=== PATIENT | female | born 1935 | race Two or more races ===

== ENCOUNTER 2017-01-22 08:18 | Observation (INO) | payer OTHER ==
--- NOTE | 2017-01-22 08:40 | PDOC ---
History of Present Illness - General Chief Complaint: Palpitations Stated Complaint: COUGH Time Seen by Provider: 01/22/17 08:39 History Source: Patient Exam Limitations: No Limitations - History of Present Illness Initial Comments: 01/22/17 08:39 CHIEF COMPLAINT: Cough HISTORY OF PRESENT ILLNESS: This is an 81 year old female from [place] with a history of HTN, HLD, and vertigo who presents ambulatory to the ED with her son complaining of cough and palpitations. She reports that she has had the cough since October. She was seen at an urgent care then and prescribed azithromycin, albuterol nebulizers, and promethazine syrup without relief. The cough has continued and is now productive of brown sputum. She has traveled to [place] most recently in December, and prior to that 3 years ago. She denies fevers, chills, nightsweats, weight loss, and known sick contacts. She denies calf pain/swelling , misha hemoptysis, and chest pain. She does not have any family or personal history of hypercoaguability. The patient was prompted to present to the ED today because of palpitations. V/s on arrival are notable for SpO2 93% on RA, BP 176/85, HR 128 on EKG. Patient does not follow with a PCP. REVIEW OF SYSTEMS: GENERAL/CONSTITUTIONAL: No fevers or chills. No weakness. No weight change. HEAD, EYES, EARS, NOSE AND THROAT: No change in vision. No ear pain or discharge. No sore throat. CARDIOVASCULAR: Palpitations this morning. No chest pain. RESPIRATORY: Dry cough since October, now productive of brown sputum. No shortness of breath. GASTROINTESTINAL: No nausea, vomiting, diarrhea or constipation. GENITOURINARY: No dysuria, frequency, or change in urination. MUSCULOSKELETAL: No neck or back pain. No myalgias or arthralgias. SKIN: No rash or easy bruising. NEUROLOGIC: No headache, vertigo, loss of consciousness, or loss of sensation. HEMATOLOGIC/LYMPHATIC: No anemia, easy bleeding, or history of blood clots. ALLERGIC/IMMUNOLOGIC: No hives or skin allergy. No latex allergy. PHYSICAL EXAM: GENERAL: The patient is awake, alert, and fully oriented, in no acute distress. ENT: Pupils equal, round and reactive to light, extraocular movements intact, sclera anicteric, conjunctiva clear. Neck supple. LUNGS: SUMIT ronchi. Scattered wheezes. Mild tachypnea. Able to speak in full sentences. CV: Tachycardic. RRR, S1/S2, no MRG. Cap refill < 2 sec. ABDOMEN: Soft, non-distended, non-tender. EXTREMITIES: Normal range of motion, no edema. No calf tenderness, negative Homans' sign. NEUROLOGICAL: Normal speech. CN II-XII grossly intact. PSYCH: Normal mood, normal affect. SKIN: Warm, dry, normal turgor, no rashes or lesions noted. Past History - Past Medical History Allergies/Adverse Reactions: Allergies Allergy/AdvReac Type Severity Reaction Status Date / Time No Known Allergies Allergy Verified 01/22/17 08:19 Home Medications: Ambulatory Orders Amlodipine Besylate [Norvasc -] 5 mg PO DAILY 03/25/15 Enalapril Maleate [Vasotec] 20 mg PO DAILY 03/25/15 Hydrochlorothiazide [Hctz -] 12.5 mg PO DAILY 03/25/15 Meclizine HCl [Antivert -] 25 mg PO TID #21 tablet 03/25/15 HTN: Yes Hypercholesterolemia: Yes - Surgical History Cholecystectomy: Yes - Psycho/Social/Smoking Cessation Hx Anxiety: No Suicidal Ideation: No Smoking History: Never smoked Have you smoked in the past 12 months: No If you are a former smoker, when did you quit?: 1982 Information on smoking cessation initiated: No Hx Alcohol Use: No Drug/Substance Use Hx: No *Physical Exam - Vital Signs Last Vital Signs Temp Pulse Resp BP Pulse Ox 98.3 F 101 H 18 176/85 93 L 01/22/17 08:19 01/22/17 08:19 01/22/17 08:19 01/22/17 08:19 01/22/17 08:19 ED Treatment Course - LABORATORY CBC & Chemistry Diagram: 01/22/17 09:00 01/22/17 09:00 Medical Decision Making - Medical Decision Making 01/22/17 09:01 A/P: 81 year old female with 3-4 months of cough, presenting today with ? hemoptysis, palpitations, and tachycardia. Significant travel history. SUMIT ronchi/wheezes on exam. Differential includes URI/pneumonia, TB, less likely PE , CHF. 1. EKG and cardiac cath rn 2. CXR; anticipate chest CT 3. Sepsis labs and fernandes-culture 4. IVF 5. Re-assess 01/22/17 10:22 D-dimer within normal limits at 222. CXR: no infiltrate, will obtain CT 01/22/17 10:42 CT reviewed: left hilar calcifications, no acute process. Labs notable only for BUN/Cr 1.5 (22/1.4 on prior admission in 2014) 01/22/17 10:58 Repeat HR is 85 after fluids. Repeat SpO2 is 94%. Will treat with azithromycin for bronchitis. Given abnormal v/s on presentation, will place in observation. *DC/Admit/Observation/Transfer Diagnosis at time of Disposition: Palpitations, Hemoptysis, Bronchitis, Hypoxia - Discharge Dispostion Admit: Yes
[2017-01-22 09:10] LABS: VENOUS PH 7.4 (7.32-7.42)
[2017-01-22 09:11] LABS: VENOUS BLOOD GAS HCO3 28.3 meq/L (19-25)
[2017-01-22 09:15] LABS: BASOPHIL 0.8 % (0-2.0); EOSINOPHIL 8.7 % (0-4.5); MCH 30.2 pg (25.7-33.7); MCHC 34.1 g/dl (32.0-36.0); MEAN CELL VOLUME 88.5 fl (80-96); MEAN PLT VOLUME 8.5 fl (7.5-11.1); NEUTROPHILS 53.2 % (42.8-82.8); PLATELET COUNT 263 K/MM3 (134-434); RDW 13.8 % (11.6-15.6); WHITE BLOOD COUNT 6.6 K/mm3 (4.0-10.0)
[2017-01-22 09:17] LABS: URINE APPEARANCE CLEAR; URINE BILIRUBIN NEGATIVE (NEGATIVE); URINE COLOR YELLOW; URINE GLUCOSE (UA) NEGATIVE (NEGATIVE); URINE KETONE NEGATIVE (NEGATIVE); URINE LEUK ESTERASE NEGATIVE (NEGATIVE); URINE NITRITE NEGATIVE (NEGATIVE); URINE UROBILINOGEN NEGATIVE E.U./dl (0.2-1.0)
[2017-01-22 09:20] LABS: URINE BLOOD 3+ (NEGATIVE); URINE PROTEIN 1+ (NEGATIVE)
[2017-01-22 09:21] LABS: URINE HYALINE CAST 3 /lpf; URINE MUCUS RARE; URINE RBC 22 /hpf (0-3); URINE WBC 1 /hpf (3-5)
[2017-01-22 09:29] LABS: INR 0.96 (0.82-1.09); PROTHROMBIN TIME (PATIENT) 10.5 SEC (9.98-11.88)
[2017-01-22 09:32] LABS: ACTIVATED PTT 32.2 SECONDS (26.9-34.4)
[2017-01-22 09:58] LABS: ALBUMIN 3.8 g/dl (3.4-5.0); ANION GAP 9 (8-16); CALCIUM 8.8 mg/dL (8.5-10.1); CO2 28 mmol/L (21-32); COCKROFT - GAULT 29.4865; CREATININE 1.5 mg/dL (0.55-1.02); GLUCOSE,RANDOM 109 mg/dL (74-106); SGOT/AST 23 U/L (15-37); SGPT/ALT 31 U/L (12-78)
[2017-01-22 10:02] LABS: ALK PHOS 91 U/L (45-117); BILIRUBIN,TOTAL 0.4 mg/dL (0.2-1.0); TOT PROT 7.8 g/dl (6.4-8.2); TROPONIN I < 0.02 ng/ml (0.00-0.05)
[2017-01-22] MEDS ORDERED: SODIUM CHLORIDE 1,000 ML IV STA (10:05)
[2017-01-22] MEDS ORDERED: ALBUTEROL SO4 0.083% IH SOL 2.5 MG/3 ML VIAL.NEB. NEB ONE (10:58)
[2017-01-22 11:31] LABS: THYROID STIMULATING HORMONE 2.36 uIU/ml (0.358-3.74)
[2017-01-22] MEDS ORDERED: AZITHROMYCIN IVPB 500 MG in DEXTROSE 5%-WATER - 250 ML IVPB ONE (11:46)
[2017-01-22] MEDS ORDERED: AZITHROMYCIN IVPB 250 ML IVPB ONE (11:53)
--- NOTE | 2017-01-22 15:47 | PN ---
Progress Note (short form) - Note Progress Note: PULMONARY CONSULTATION DICTATED 01/22/17 IMP COUGH/BRONCHOSPASM HYPER-REACTIVE AIRWAY SYNDROME R/O GERD HTN HLD PLAN STEROIDS INHALED BRONCHODILATORS ANTIBIOTICS PFTS OUTPATIENT PEAK FLOW CONSIDER D/C JULIANN INHIBITOR DR [place] Problem List - Problems (1) Bronchitis Code(s): J40 - BRONCHITIS, NOT SPECIFIED ACUTE OR CHRONIC (2) Lightheadedness Code(s): R42 - DIZZINESS AND GIDDINESS (3) Cough Code(s): R05 - COUGH (4) Bronchospasm Code(s): J98.01 - ACUTE BRONCHOSPASM (5) Airway hyperreactivity Code(s): J45.909 - UNSPECIFIED ASTHMA, UNCOMPLICATED
--- NOTE | 2017-01-22 15:48 | PN ---
Teaching Attending Note Name of Resident: Dexter Goel ATTENDING PHYSICIAN STATEMENT I saw and evaluated the patient. I reviewed the resident's note and discussed the case with the resident. I agree with the resident's findings and plan as documented. SUBJECTIVE:81yo F c/o productive cough of white/clear sputum for 1 month. states she can not relate it to time of day. not assoc with certain type of activity. no similar symptoms in the past. no sick contacts, no recent travel. denies CP, SOB, dyspnea on exertion, fever, chills, no weight loss. has a dog at home. no recent changes in medication. OBJECTIVE: Last Vital Signs Temp Pulse Resp BP Pulse Ox 98.4 F 89 18 150/74 94 L 01/22/17 15:00 01/22/17 15:00 01/22/17 15:00 01/22/17 15:00 01/22/17 14:06 General NAD CV s1 S2 RRR no murmur/rub/gallop Lungs mild expiratory wheezes R side. no crackles. good lung expansion Abdomen soft NT/ND Extremities no pedal edema ASSESSMENT AND PLAN: 81yo F with PMH HTN presented to the ER and was admitted for further evaluation of their emergent condition 1.Chronic Cough- Bronchitis vs ACEI vs postnasal drip. medicine observation. CT chest negative. ddimer negative. low suspicion for PE. started on azithromycin will continue. flonase 2 week trial. d/c acei and monitor for response. nebs prn no sob. pulmonary on board 2. HTN- above goal. if remains elevated will increase norvasc as now stopping acei. titrate to optimize control 3. DVT ppx- EAM
--- NOTE | 2017-01-22 16:32 | CONS ---
DATE OF CONSULTATION: 01/22/2017 REFERRING PHYSICIAN: Lucia Manjarrez M.D. HISTORY OF PRESENT ILLNESS: The patient is an 81-year-old white female with past medical history of hypertension, hyperlipidemia, vertigo, history of smoking many years ago, admitted to [facility] with complaint of cough and palpitations. Patient states she had a cough since October. At the time, she went to an urgent care center, was prescribed Zithromax, albuterol, and promethazine without any significant improvement. Her cough has been persistent, for the past few days productive of brownish sputum. Denied any hemoptysis. Denied any chest pain or palpitations, denied any nausea, vomiting, or diaphoreses. She recently traveled to [place] in December, and prior to that 3 years ago. There is no history of asthma or COPD or bronchitis. There is no history of TB. She denies any fevers, weight loss, or night sweats. PAST MEDICAL HISTORY: Again includes hyperlipidemia, hypertension, vertigo. REVIEW OF SYSTEMS: Positive shortness of breath. Positive cough. Positive bronchospasm. No chest pain. No palpitations. MEDICATION: Prior to admission include Norvasc, Vasotec, hydrochlorothiazide, Antivert. CURRENT MEDICATIONS: Include no medications. SOCIAL HISTORY: History of tobacco use, quit years ago. Born in [place] and moved to the [facility] in [facility]. No occupational exposures . PHYSICAL EXAMINATION: General: The patient is an elderly delfino white female, awake, alert, in no acute distress. Vital signs: She is currently afebrile. Blood pressure 150/74, respiratory rate 18, temperature is 98.4. HEENT: Head is normocephalic, atraumatic. Neck: Supple. Heart: Regular. S1, S2. Chest: A few scattered bilateral wheezes. Abdomen: Soft. Bowel sounds positive. Extremities: No cyanosis, edema. LABORATORY: WBC is 6.6, hemoglobin 13.9, hematocrit 40.8 with a platelet count of 263,000. Venous blood gases: pH 7.40, pCO2 of 45, pO2 of 33, bicarbonate of 28. Chemistries: BUN 27, creatinine 1.5. 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 IMPRESSION: 1. Cough, bronchospasm possible secondary to hyperactive airway syndrome. 2. Cough also may be secondary to JULIANN inhibitors. 3. Hypertension. 4. Hyperlipidemia. PLAN: Inhaled bronchodilators. IV steroids 24 hours. PFTs as outpatient. Consider changing to different antibiotic. Consider changing antihypertensive. Monitor peak flow. RAMESH C[place] M.D. AUDREY/[id number]
[2017-01-22] MEDS ORDERED: ALBUTEROL SO4 0.083% IH SOL 2.5 MG/3 ML VIAL.NEB. NEB PRN (16:52)
[2017-01-22 16:53] VITALS: BMI 23.7
[2017-01-22] MEDS ORDERED: MECLIZINE HCL 25 MG TABLET (FP) PO PRN (17:21)
--- NOTE | 2017-01-22 17:24 | HP ---
CHIEF COMPLAINT:Cough PCP: HISTORY OF PRESENT ILLNESS: 81 year old female with pmg of hpld and HTN on enalapril present to the ED with complaints of non productive cough for more than a month that increased in this morning. The patient denies fever, chills, shortness of breath, rinnorrhea, chest pain, dyspnea on exertion, arthralgia, myalgia, hemptysis, fatigue, weight loss, anorexia, nightsweats, dizziness, general weakness, n/v, abdominal pain. No sick contact. Patient has an episode of palpitation yesterday which she associated to taking robutussin. ER course was notable for: (1) albuterol, Normal saline, azithromycin PAST MEDICAL HISTORY: HTN, Hyperlipidemia, vertigo PAST SURGICAL HISTORY: Cholecystectomy, hysterectomy Social History: Smoking:none Alcohol:none Drugs: none Family History: none Allergies No Known Allergies Allergy (Verified 01/22/17 08:19) HOME MEDICATIONS: Home Medications Medication Instructions Recorded Amlodipine Besylate [Norvasc -] 5 mg PO DAILY 03/25/15 Enalapril Maleate [Vasotec] 20 mg PO DAILY 03/25/15 Hydrochlorothiazide [Hctz -] 12.5 mg PO DAILY 03/25/15 Meclizine HCl [Antivert -] 25 mg PO TID #21 tablet 03/25/15 ASpirin 81mg PO daily Centrum Multivitamin 1 tablet orally daily REVIEW OF SYSTEMS CONSTITUTIONAL: Absent: fever, chills, diaphoresis, generalized weakness, malaise, loss of appetite, weight change HEENT: Absent: rhinorrhea, nasal congestion, throat pain, throat swelling, difficulty swallowing, mouth swelling, ear pain, eye pain, visual changes CARDIOVASCULAR: palpitations, Absent: chest pain, syncope, irregular heart rate, lightheadedness, peripheral edema RESPIRATORY: cough Absent:, shortness of breath, dyspnea with exertion, orthopnea, wheezing, stridor, hemoptysis GASTROINTESTINAL: Absent: abdominal pain, abdominal distension, nausea, vomiting, diarrhea, constipation, melena, hematochezia GENITOURINARY: Absent: dysuria, frequency, urgency, hesitancy, hematuria, flank pain, genital pain MUSCULOSKELETAL: Absent: myalgia, arthralgia, joint swelling, back pain, neck pain SKIN: Absent: rash, itching, pallor HEMATOLOGIC/IMMUNOLOGIC: Absent: easy bleeding, easy bruising, lymphadenopathy, frequent infections ENDOCRINE: Absent: unexplained weight gain, unexplained weight loss, heat intolerance, cold intolerance NEUROLOGIC: Absent: headache, focal weakness or paresthesias, dizziness, unsteady gait, seizure, mental status changes, bladder or bowel incontinence PSYCHIATRIC: Absent: anxiety, depression, suicidal or homicidal ideation, hallucinations. PHYSICAL EXAMINATION Vital Signs - 24 hr 01/22/17 01/22/17 14:06 15:00 Temperature 98 F 98.4 F Pulse Rate 89 Pulse Rate [ 89 Left Radial] Respiratory 20 18 Rate Blood Pressure 150/74 Blood Pressure 140/80 [Left Arm] O2 Sat by Pulse 94 L Oximetry (%) GENERAL: Awake, alert, and fully oriented, in no acute distress. HEAD: Normal with no signs of trauma. EYES: Pupils equal, round and reactive to light, extraocular movements intact, sclera anicteric, conjunctiva clear. No lid lag. EARS, NOSE, THROAT: Ears normal, nares patent, oropharynx clear without exudates. Moist mucous membranes. NECK: Normal range of motion, supple without lymphadenopathy, JVD, or masses. LUNGS: Breath sounds equal, clear to auscultation bilaterally. No wheezes, and no crackles. No accessory muscle use. HEART: Regular rate and rhythm, normal S1 and S2 without murmur, rub or gallop. ABDOMEN: Soft, nontender, not distended, normoactive bowel sounds, no guarding, no rebound, no masses. No hepatomegaly or splenomegaly. MUSCULOSKELETAL: Normal range of motion at all joints. No bony deformities or tenderness. No CVA tenderness. UPPER EXTREMITIES: 2+ pulses, warm, well-perfused. No cyanosis. No clubbing. No peripheral edema. LOWER EXTREMITIES: 2+ pulses, warm, well-perfused. No calf tenderness. No peripheral edema. NEUROLOGICAL: Cranial nerves II-XII intact. Normal speech. Normal gait. PSYCHIATRIC: Cooperative. Good eye contact. Appropriate mood and affect. SKIN: Warm, dry, normal turgor, no rashes or lesions noted, normal capillary refill. ASSESSMENT/PLAN: 81 year old female with PMh of HPLD, HTN on enalapril presents to the ED with complaint of non productive cough for at least one month. Subacute/chronic cough r/o JULIANN inhibitor effect, Upper airway cough syndrome/ Postnasal, Bronchitis, asthma, GERD Solumedrol IV Synbicort inh Albuterol Inh Azithomycin 250mg PO daily x 4 days Flonase nasal BID DC Enalapril Pulmonary on case Will follow outpatient for PFTs Consider Codeine sulfate 15-30mg PO q6h prn for cough HTN Norvasc 5mg PO ASA 81mg Po daily Stop Enalpril h/o Vertigo Antivert PRN FEN Fluid: none Electrolytes: no abnormalities Nutrition: Low sodium diet DVT prophylaxis: SCD Disposition: keep in floor overnight, DC in am Visit type - Emergency Visit Emergency Visit: Yes ED Registration Date: 01/22/17 Care time: The patient presented to the Emergency Department on the above date and was hospitalized for further evaluation of their emergent condition. - New Patient This patient is new to me today: Yes Date on this admission: 01/23/17 - Critical Care Critical Care patient: No
[2017-01-22] MEDS: methylPREDNISolone NA SUCC 40 MG/1 ML VIAL IVPB SCH ×2 (18:41→21:26)
[2017-01-22] MEDS: amLODIPine BESYLATE 5 MG TABLET (FP) PO SCH (18:41)
[2017-01-22] MEDS ORDERED: HEPARIN NA (PORCINE) 5,000 UNITS/ML 1ML VIAL SQ SCH (22:00)
[2017-01-22] MEDS: FLUTICASONE PROP 0.05% 16 GM NASAL SPRAY NS SCH (22:57)
[2017-01-22] MEDS: BUDESONIDE/FORMETEROL FUMARATE 160/4.5 mcg INHALER IH SCH (22:58)
[2017-01-23] MEDS: methylPREDNISolone NA SUCC 40 MG/1 ML VIAL IVPB SCH ×4 (03:44→17:56)
[2017-01-23] MEDS ORDERED: PT OWN MED DRAWER 7, Y5N ONE (09:20)
[2017-01-23] MEDS: BUDESONIDE/FORMETEROL FUMARATE 160/4.5 mcg INHALER IH SCH ×2 (09:36→21:56)
[2017-01-23] MEDS: ASPIRIN COATED 81 MG TABLET.EC PO SCH (09:37)
[2017-01-23] MEDS: HYDROCHLOROTHIAZIDE 12.5 MG CAPSULE (FP) PO SCH (09:37)
[2017-01-23] MEDS: amLODIPine BESYLATE 5 MG TABLET (FP) PO SCH (09:37)
[2017-01-23] MEDS: FLUTICASONE PROP 0.05% 16 GM NASAL SPRAY NS SCH ×2 (09:38→21:56)
[2017-01-23] MEDS: AZITHROMYCIN 250 MG TABLET (FP) PO SCH (09:39)
[2017-01-23 10:30] LABS: CALCIUM 9.2 mg/dL (8.5-10.1); COCKROFT - GAULT 30.073; CREATININE 1.5 mg/dL (0.55-1.02)
--- NOTE | 2017-01-23 11:48 | PN ---
Progress Note, Physician History of Present Illness: PULMONARY ALERT,FEELING BETTER,LESS COUGH,-SOB. - Current Medication List Current Medications: Active Medications Albuterol Sulfate (Ventolin 0.083% Nebulizer Soln -) 1 amp NEB Q4H PRN PRN Reason: SHORT OF BREATH/WHEEZING Amlodipine Besylate (Norvasc -) 5 mg PO DAILY [facility] Last Admin: 01/23/17 09:37 Dose: 5 mg Aspirin (Ecotrin -) 81 mg PO DAILY [facility] Last Admin: 01/23/17 09:37 Dose: 81 mg Azithromycin (Zithromax -) 250 mg PO DAILY [facility] Last Admin: 01/23/17 09:39 Dose: 250 mg Budesonide/Formoterol Fumarate (Symbicort 160/4.5mcg -) 2 puff IH BID [facility] Last Admin: 01/23/17 09:36 Dose: 2 inh Fluticasone Propionate (Flonase -) 1 spray NS BID [facility] Last Admin: 01/23/17 09:38 Dose: 1 spray Hydrochlorothiazide (Hctz -) 12.5 mg PO DAILY [facility] Last Admin: 01/23/17 09:37 Dose: 12.5 mg Meclizine HCl (Antivert -) 25 mg PO TID PRN PRN Reason: VERTIGO Methylprednisolone Sodium Succinate (Solu-Medrol -) 40 mg IVPB Q6H-IV [facility] Last Admin: 01/23/17 09:38 Dose: 40 mg - Objective Vital Signs: Vital Signs Temperature 98.3 F 01/23/17 07:00 Pulse Rate 94 H 01/23/17 07:00 Respiratory Rate 18 01/23/17 07:00 Blood Pressure 132/77 01/23/17 07:00 O2 Sat by Pulse Oximetry (%) 94 L 01/22/17 14:06 Constitutional: Yes: Well Nourished, Calm Eyes: Yes: WNL HENT: Yes: WNL Neck: Yes: WNL Cardiovascular: Yes: Regular Rate and Rhythm, S1, S2 Respiratory: Yes: CTA Bilaterally Gastrointestinal: Yes: Normal Bowel Sounds, Soft Extremities: Yes: WNL Edema: No Labs: CBC, BMP 01/23/17 09:50 INR, PTT INR 0.96 (0.82-1.09) 01/22/17 09:00 Problem List - Problems (1) Bronchitis Code(s): J40 - BRONCHITIS, NOT SPECIFIED ACUTE OR CHRONIC (2) Lightheadedness Code(s): R42 - DIZZINESS AND GIDDINESS (3) Cough Code(s): R05 - COUGH (4) Bronchospasm Code(s): J98.01 - ACUTE BRONCHOSPASM (5) Airway hyperreactivity Code(s): J45.909 - UNSPECIFIED ASTHMA, UNCOMPLICATED Assessment/Plan IMP COUGH/BRONCHOSPASM IMPROVED HYPER-REACTIVE AIRWAY SYNDROME HTN HLD PLAN STEROIDS TAPER INHALED BRONCHODILATORS PFTS OUTPATIENT PEAK FLOW DR [place] Problem List - Problems (1) Bronchitis Code(s): J40 - BRONCHITIS, NOT SPECIFIED ACUTE OR CHRONIC (2) Lightheadedness Code(s): R42 - DIZZINESS AND GIDDINESS (3) Cough Code(s): R05 - COUGH (4) Bronchospasm Code(s): J98.01 - ACUTE BRONCHOSPASM (5) Airway hyperreactivity Code(s): J45.909 - UNSPECIFIED ASTHMA, UNCOMPLICATED
--- NOTE | 2017-01-23 15:15 | PN ---
Progress Note (short form) - Note Progress Note: continues to have cough productive white cough. denies fever, chills, N/V/C/D Current Medications Generic Name Dose Route Start Last Admin Trade Name Freq PRN Reason Stop Dose Admin Albuterol Sulfate 1 amp 01/22/17 16:52 Ventolin 0.083% Nebulizer Soln - NEB Q4H PRN SHORT OF BREATH/WHEEZING Amlodipine Besylate 5 mg 01/22/17 17:30 01/23/17 09:37 Norvasc - PO 5 mg DAILY NICHOLAS Administration Aspirin 81 mg 01/23/17 10:00 01/23/17 09:37 Ecotrin - PO 81 mg DAILY NICHOLAS Administration Azithromycin 250 mg 01/23/17 10:00 01/23/17 09:39 Zithromax - PO 250 mg DAILY NICHOLAS Administration Budesonide/Formoterol Fumarate 2 puff 01/22/17 22:00 01/23/17 09:36 Symbicort 160/4.5mcg - IH 2 inh BID NICHOLAS Administration Fluticasone Propionate 1 spray 01/22/17 22:00 01/23/17 09:38 Flonase - NS 1 spray BID NICHOLAS Administration Hydrochlorothiazide 12.5 mg 01/23/17 10:00 01/23/17 09:37 Hctz - PO 12.5 mg DAILY NICHOLAS Administration Meclizine HCl 25 mg 01/22/17 17:21 Antivert - PO TID PRN VERTIGO Methylprednisolone Sodium Succinate 40 mg 01/22/17 17:00 01/23/17 14:26 Solu-Medrol - IVPB 40 mg Q6H-IV NICHOLAS Administration Last Vital Signs Temp Pulse Resp BP Pulse Ox 98.3 F 98 H 18 153/74 94 L 01/23/17 10:00 01/23/17 10:00 01/23/17 10:00 01/23/17 10:00 01/23/17 08:00 General NAD CV s1 S2 RRR no murmur/rub/gallop Lungs CTA B/L no wheezing/rales/rhonchi Abdomen soft NT/ND Extremities no pedal edema CMP Sodium 139 mmol/L (136-145) 01/23/17 09:50 Potassium 4.2 mmol/L (3.5-5.1) 01/23/17 09:50 Chloride 104 mmol/L (98-107) 01/23/17 09:50 Carbon Dioxide 25 mmol/L (21-32) 01/23/17 09:50 Anion Gap 10 (8-16) 01/23/17 09:50 BUN 29 mg/dL (7-18) H 01/23/17 09:50 Creatinine 1.5 mg/dL (0.55-1.02) H 01/23/17 09:50 Creat Clearance w eGFR 33.33 (>60) 01/22/17 09:00 Calcium 9.2 mg/dL (8.5-10.1) 01/23/17 09:50 Total Bilirubin 0.4 mg/dL (0.2-1.0) 01/22/17 09:00 AST 23 U/L (15-37) 01/22/17 09:00 ALT 31 U/L (12-78) 01/22/17 09:00 Alkaline Phosphatase 91 U/L (45-117) 01/22/17 09:00 Total Protein 7.8 g/dl (6.4-8.2) 01/22/17 09:00 Albumin 3.8 g/dl (3.4-5.0) 01/22/17 09:00 ASSESSMENT AND PLAN: 81yo F with PMH HTN presented to the ER and was admitted for further evaluation of their emergent condition 1.Chronic Cough- Bronchitis vs ACEI vs postnasal drip. no wheezing appreciated. will titrate down steroids. azithromycin day 2. flonase, symbicort. pulmonary on board 2. HTN- above goal. increase norvasc to 10mg. titrate to optimize control 3. DVT ppx- EAM 4. case d/w son present at bedside. answered all questions. agreed with plan Visit type - Emergency Visit Emergency Visit: Yes ED Registration Date: 01/22/17 Care time: The patient presented to the Emergency Department on the above date and was hospitalized for further evaluation of their emergent condition. - New Patient This patient is new to me today: No - Critical Care Critical Care patient: No - Discharge Referral Referred to [facility] No
[2017-01-23] MEDS ORDERED: amLODIPine BESYLATE 5 MG TABLET (FP) PO ONE (15:18)
[2017-01-23] MEDS ORDERED: amLODIPine BESYLATE 10 MG TABLET (FP) PO SCH (15:20)
[2017-01-23] MEDS ORDERED: ALBUTEROL SO4 2.5/IPRATROPIUM 0.5 INH SOL 3 ML VIAL.NEB. NEB PRN (15:23)
[2017-01-24] MEDS: methylPREDNISolone NA SUCC 40 MG/1 ML VIAL IVPB SCH ×2 (02:43→10:13)
[2017-01-24] MEDS ORDERED: PT OWN MED DRAWER 7, Y5N ONE (09:58)
[2017-01-24 10:12] VITALS: TEMP 97.8
[2017-01-24] MEDS: AZITHROMYCIN 250 MG TABLET (FP) PO SCH (10:14)
[2017-01-24] MEDS: FLUTICASONE PROP 0.05% 16 GM NASAL SPRAY NS SCH (10:14)
[2017-01-24] MEDS: ASPIRIN COATED 81 MG TABLET.EC PO SCH (10:14)
[2017-01-24] MEDS: HYDROCHLOROTHIAZIDE 12.5 MG CAPSULE (FP) PO SCH (10:14)
[2017-01-24] MEDS: BUDESONIDE/FORMETEROL FUMARATE 160/4.5 mcg INHALER IH SCH (10:15)
--- NOTE | 2017-01-24 12:06 | PN ---
Progress Note, Physician History of Present Illness: PULMONARY ALERT,NO DISTRESS,-SOB,+COUGH,-WHEEZES - Current Medication List Current Medications: Active Medications Albuterol Sulfate (Ventolin 0.083% Nebulizer Soln -) 1 amp NEB Q4H PRN PRN Reason: SHORT OF BREATH/WHEEZING Albuterol/Ipratropium (Duoneb -) 1 amp NEB Q6H PRN PRN Reason: SHORTNESS OF BREATH Amlodipine Besylate (Norvasc -) 10 mg PO DAILY [facility] Last Admin: 01/24/17 10:14 Dose: 10 mg Aspirin (Ecotrin -) 81 mg PO DAILY [facility] Last Admin: 01/24/17 10:14 Dose: 81 mg Azithromycin (Zithromax -) 250 mg PO DAILY [facility] Last Admin: 01/24/17 10:14 Dose: 250 mg Budesonide/Formoterol Fumarate (Symbicort 160/4.5mcg -) 2 puff IH BID [facility] Last Admin: 01/24/17 10:15 Dose: 2 inh Fluticasone Propionate (Flonase -) 1 spray NS BID [facility] Last Admin: 01/24/17 10:14 Dose: 1 spray Hydrochlorothiazide (Hctz -) 12.5 mg PO DAILY [facility] Last Admin: 01/24/17 10:14 Dose: 12.5 mg Meclizine HCl (Antivert -) 25 mg PO TID PRN PRN Reason: VERTIGO Methylprednisolone Sodium Succinate (Solu-Medrol -) 40 mg IVPB Q8H-IV [facility] Last Admin: 01/24/17 10:13 Dose: 40 mg - Objective Vital Signs: Vital Signs Temperature 97.8 F 01/24/17 10:05 Pulse Rate 86 01/24/17 10:05 Respiratory Rate 20 01/24/17 10:05 Blood Pressure 142/83 01/24/17 10:05 O2 Sat by Pulse Oximetry (%) 94 L 01/24/17 05:04 Constitutional: Yes: Well Nourished, Calm Eyes: Yes: WNL HENT: Yes: WNL Neck: Yes: WNL Cardiovascular: Yes: Regular Rate and Rhythm, S1, S2 Respiratory: Yes: CTA Bilaterally Gastrointestinal: Yes: WNL Extremities: Yes: WNL Edema: No Labs: CBC, BMP 01/23/17 09:50 INR, PTT INR 0.96 (0.82-1.09) 01/22/17 09:00 Problem List - Problems (1) Bronchitis Code(s): J40 - BRONCHITIS, NOT SPECIFIED ACUTE OR CHRONIC (2) Lightheadedness Code(s): R42 - DIZZINESS AND GIDDINESS (3) Cough Code(s): R05 - COUGH (4) Bronchospasm Code(s): J98.01 - ACUTE BRONCHOSPASM (5) Airway hyperreactivity Code(s): J45.909 - UNSPECIFIED ASTHMA, UNCOMPLICATED Assessment/Plan IMP COUGH/BRONCHOSPASM IMPROVED HYPER-REACTIVE AIRWAY SYNDROME ?GERD HTN HLD PLAN PREDNISONE WITH TAPER INHALED BRONCHODILATORS PFTS OUTPATIENT PEAK FLOW DR [place] Problem List - Problems (1) Bronchitis Code(s): J40 - BRONCHITIS, NOT SPECIFIED ACUTE OR CHRONIC (2) Lightheadedness Code(s): R42 - DIZZINESS AND GIDDINESS (3) Cough Code(s): R05 - COUGH (4) Bronchospasm Code(s): J98.01 - ACUTE BRONCHOSPASM (5) Airway hyperreactivity Code(s): J45.909 - UNSPECIFIED ASTHMA, UNCOMPLICATED
--- NOTE | 2017-01-24 13:28 | PN ---
Teaching Attending Note Name of Resident: Dexter Goel ATTENDING PHYSICIAN STATEMENT I saw and evaluated the patient. I reviewed the resident's note and discussed the case with the resident. I agree with the resident's findings and plan as documented. SUBJECTIVE:states cough has improved. denies CP, SOB,fever, chills, N/V/C/D OBJECTIVE: Last Vital Signs Temp Pulse Resp BP Pulse Ox 97.8 F 86 20 142/83 94 L 01/24/17 10:05 01/24/17 10:05 01/24/17 10:05 01/24/17 10:05 01/24/17 05:04 General NAD Lungs CTA B/L no wheezing/rales/rhonchi ASSESSMENT AND PLAN: 81yo F with PMH HTN presented to the ER and was admitted for further evaluation of their emergent condition 1.Chronic Cough- Bronchitis vs ACEI vs postnasal drip. clinically improved. will d/c on steroid taper. received 3 days of azithromycin will d/c to complete 5 day course. flonase trial for 2 weeks. started on symbicort. will need to follow up with pulmonary for PFT testing. 2. HTN- improved. on norvasc 10mg 3. DVT ppx- EAM 4. d/c home
--- NOTE | 2017-01-24 14:31 | DS ---
Physical Exam: SUBJECTIVE: Patient seen and examined Pt is feeling well very minimal cough in the morning no fever or chills no chills no sob or palpitation OBJECTIVE: Vital Signs Period Temp Pulse Resp BP Sys/Mendoza Pulse Ox Last 24 Hr 97.5 F-98.6 F 85-106 18-22 122-144/72-85 93-94 PHYSICAL EXAM GENERAL: Awake, alert, and fully oriented, in no acute distress. HEAD: Normal with no signs of trauma. NECK: Normal range of motion, supple without lymphadenopathy, JVD, or masses. LUNGS: Breath sounds equal, clear to auscultation bilaterally. No wheezes, and no crackles. No accessory muscle use. HEART: Regular rate and rhythm, normal S1 and S2 without murmur, rub or gallop. ABDOMEN: Soft, nontender, not distended, normoactive bowel sounds, no guarding, no rebound, no masses. No hepatomegaly or splenomegaly. MUSCULOSKELETAL: Normal range of motion at all joints. No bony deformities or tenderness. No CVA tenderness. normal ambulation LOWER EXTREMITIES: 2+ pulses, warm, well-perfused. No calf tenderness. No peripheral edema. NEUROLOGICAL: Cranial nerves II-XII intact. Normal speech. Normal gait. SKIN: Warm, dry, normal turgor, no rashes or lesions noted, normal capillary refill. LABS CBC, BMP 01/22/17 09:00 01/23/17 09:50 HOSPITAL COURSE: Date of Admission:01/22/17 81 year old female with pmg of hpld and HTN on enalapril present to the ED with complaints of non productive cough for more than a month that increased in this morning. The patient denies fever, chills, shortness of breath, rinnorrhea, chest pain, dyspnea on exertion, arthralgia, myalgia, hemptysis, fatigue, weight loss, anorexia, nightsweats, dizziness, general weakness, n/v, abdominal pain. No sick contact. Patient has an episode of palpitation yesterday which she associated to taking robutussin. ER course was notable for:(1) albuterol, Normal saline, azithromycin Pt has Subacute/chronic cough most likely due to JULIANN inhibitor effect, Upper airway cough syndrome/Postnasal, Bronchitis r/o asthma, GERD. Pt was treated with Solumedrol IV, Synbicort inh, Albuterol Inh, Azithomycin 250mg PO, Flonase nasal BID for 7 days. Enalapril was stopped. Pulmonary was consulted. Pt to follow up as outpatient for PFTs with Dr Haq within 1 week. . Pt has HTN, Norvasc was increased to 10mg PO daily. Continue ASA 81mg Po daily. follwo up with primary care physician in 1-2 weeks Date of Discharge: 01/24/17 Minutes to complete discharge: 30 Discharge Summary Reason For Visit: BRONCHITIS Current Active Problems Airway hyperreactivity (Acute) Bronchitis (Acute) Bronchospasm (Acute) Cough (Acute) Hemoptysis (Acute) Hypoxia (Acute) Palpitations (Acute) Condition: Stable - Instructions Diet, Activity, Other Instructions: Discharge home resume Home diet Resume home activity Stop enalapril Norvac was increased to 10 mg, 1 tablet orally day Start prednisone taper 40 mg PO for 1 day 30 mg Po daily for 2 days 20 mg Po daily for 2 days 10 mg Po daily for 1 day Azithromycin 1 tablet daily for 2 days Flonase nasal twice per day for 1 week Symbicort Inhaler twice per day Albulterol inhaler as needed every 4 hours for wheezing and cough Follow up with Dr Haq Pulmonology within 1 week [facility] within 1 week, if you do not have one information on one in the area has been provided Referrals: Vickey Haq MD [Staff Physician] - Bienvenido Angel MD [Staff Physician] - Disposition: HOME - Home Medications Comprehensive Discharge Medication List: Ambulatory Orders Hydrochlorothiazide [Hctz -] 12.5 mg PO DAILY 03/25/15 Meclizine HCl [Antivert -] 25 mg PO TID #21 tablet 03/25/15 Aspirin [Aspirin EC] 81 mg PO DAILY 01/22/17 Albuterol Sulfate Inhaler - [Ventolin HFA Inhaler -] 1 - 2 inh PO Q4H PRN #1 inhaler 01/24/17 Amlodipine Besylate [Norvasc -] 10 mg PO DAILY #30 tablet 01/24/17 Azithromycin 250 mg PO DAILY #2 tablet 01/24/17 Budesonide/Formeterol Fumarate [SYMBICORT 160/4.5mcg -] 2 puff IH BID #1 inhaler 04/23/17 Fluticasone Prop 0.05% Nasal [Flonase -] 1 spray NS BID #1 spray 01/24/17 Prednisone See Taper PO DAILY #15 tablet 01/24/17 This patient is new to me today: Yes Emergency Visit: Yes ED Registration Date: 01/22/17 Care time: The patient presented to the Emergency Department on the above date and was hospitalized for further evaluation of their emergent condition. Critical Care patient: No - Discharge Referral Referred to [facility] No
[2017-01-24 15:41] VITALS: BP 141/76; PULSE 101
== END 2017-01-24 16:28 | disposition home or self-care (01) ==
LOC: JER 08:18 → JERBED 12:35 → J5S 14:56
PROVIDERS: ADMIT Internal Medicine; ATTEND Internal Medicine
PROC: 3E03329 Introduction of Other Anti-infective into Peripheral Vein, Percutaneous Approach (ICD-10-PCS; principal; 2017-01-22)
PROC: 3E0333Z Introduction of Anti-inflammatory into Peripheral Vein, Percutaneous Approach (ICD-10-PCS; 2017-01-22)
PROC: 3E0337Z Introduction of Electrolytic and Water Balance Substance into Peripheral Vein, Percutaneous Approach (ICD-10-PCS; 2017-01-22)
PROC: 3E013GC Introduction of Other Therapeutic Substance into Subcutaneous Tissue, Percutaneous Approach (ICD-10-PCS; 2017-01-22)
PROC: 3E0F7GC Introduction of Other Therapeutic Substance into Respiratory Tract, Via Natural or Artificial Opening (ICD-10-PCS; 2017-01-22)
PROC: 3E0F7GC Introduction of Other Therapeutic Substance into Respiratory Tract, Via Natural or Artificial Opening (ICD-10-PCS; 2017-01-22)
DX: J20.9 Acute bronchitis, unspecified (principal); R04.2 Hemoptysis; R09.02 Hypoxemia; R00.2 Palpitations; J45.909 Unspecified asthma, uncomplicated; I10 Essential (primary) hypertension; E78.5 Hyperlipidemia, unspecified
CPT/HCPCS: 36415; 71020-TC; 71250-TC; 80048; 80053; 81003; 81015; 82550; 82803; 83605; 83880; 84443; 84484; 85025; 85379; 85610; 85730; 86850; 86900; 86901; 87040; 87086; 87254; 87804; 93306-TC; 99285-25; G0378; J1644

== ENCOUNTER 2018-07-25 08:33 | Day surgery (SDC) | payer MEDICARE ==
[2018-07-21 11:35] VITALS: BMI 26.0
[~2018-07-25 08:33] MED LIST: PHENYLEPHRINE/KETOROLAC 4 ML VIAL IO ONE
[2018-07-25] MEDS ORDERED: CYCLOPENTOLATE HCL 1% OPHTH SOLN 2 ML BOTTLE ONE (09:00)
[2018-07-25] MEDS ORDERED: MOXIFLOXACIN HCL 0.5% OPHTHALMIC 3 ML BOTTLE ONE (09:00)
[2018-07-25] MEDS ORDERED: TROPICAMIDE 1% OPHTH SOLN 15 ML BOTTLE ONE (09:00)
[2018-07-25] MEDS ORDERED: DICLOFENAC SODIUM 0.1% OPHTHALMIC 2.5ML BOTTLE ONE (09:00)
[2018-07-25] MEDS ORDERED: PHENYLEPHRINE 2.5% OPHTH SOLN 15 ML BOTTLE ONE (09:00)
[2018-07-25] MEDS ORDERED: PHENYLEPHRINE 2.5% OPHTH SOLN 15 ML BOTTLE OD ONE ×3 (09:05→09:25)
[2018-07-25] MEDS ORDERED: MOXIFLOXACIN HCL 0.5% OPHTHALMIC 3 ML BOTTLE OD ONE ×3 (09:05→09:25)
[2018-07-25] MEDS ORDERED: DICLOFENAC SODIUM 0.1% OPHTHALMIC 2.5ML BOTTLE OD ONE ×3 (09:05→09:26)
[2018-07-25] MEDS ORDERED: TROPICAMIDE 1% OPHTH SOLN 15 ML BOTTLE OD ONE ×3 (09:05→09:25)
[2018-07-25] MEDS ORDERED: CYCLOPENTOLATE HCL 1% OPHTH SOLN 2 ML BOTTLE OD ONE ×3 (09:05→09:25)
[2018-07-25] MEDS ORDERED: ONDANSETRON 4 MG/2 ML VIAL IVPUSH PRN (10:38)
[2018-07-25] MEDS ORDERED: oxyCODONE HCL 5 MG TABLET PO PRN (10:38)
[2018-07-25] MEDS ORDERED: LACTATED RINGERS SOLUTION 1,000 ML IV SCH (10:45)
[2018-07-25] MEDS ORDERED: TETRACAINE 0.5% OPHTH SOLN 2 ML BOTTLE OD ONE (11:11)
[2018-07-25] MEDS ORDERED: POVIDONE-IODINE 5% OPHTHALMIC PREP 30 ML SOLUTION OD ONE (11:15)
[2018-07-25] MEDS ORDERED: BSS (NA/CA/MG/K) BALANCED SALT SOLUTION OPHTH SOLN 15 ML BOTTLE OD ONE (11:24)
[2018-07-25] MEDS ORDERED: LIDOCAINE HCL 1% PRESERVATIVE FREE - 30ML VIAL IO ONE (11:24)
[2018-07-25] MEDS ORDERED: CHONDROITIN SU A/HYALUR SOD 1 KIT IO ONE (11:24)
[2018-07-25] MEDS ORDERED: EPINEPHrine/PF 1 MG/1 ML (1:1,000) AMPULE SQ ONE (11:29)
[2018-07-25] MEDS ORDERED: PHENYLEPHRINE/KETOROLAC 4 ML VIAL IO ONE (11:29)
[2018-07-25] MEDS ORDERED: TOBRA 0.3%/DEXAMETH 0.1% OPHTHALMIC SUSP 2.5 ML BTL TP ONE (11:46)
[2018-07-25 12:17] VITALS: BP 130/72; PULSE 72; TEMP 97.3
--- NOTE | 2018-07-25 18:45 | OP ---
DATE OF OPERATION: 07/25/2018 SPECIALIST: Stepan Palacios MD PREOPERATIVE DIAGNOSIS: Cataract, right eye. POSTOPERATIVE DIAGNOSIS: Cataract, right eye. ANESTHESIA: Local. DESCRIPTION OF PROCEDURE: Patient is brought to the operating room, and the right eye was prepped and draped in the usual sterile fashion for ophthalmic surgery. The microscope was swung into position. A 2.75 keratome was used to enter the anterior chamber at approximately 10 o'clock position with an accessory port made at approximately 2 o'clock position after filling the anterior chamber with viscoelastic and 0.5 mL of preservative-free lidocaine. A cystotome and Utrata forceps were used to make a continuous circular capsulorrhexis. BSS was used to perform hydrodissection and hydrodelineation of the lens nucleus which was then rotated freely. Phacoemulsification was carried out in a [id number] technique. I/A was used to remove residual cortical material from the capsular bag. The capsular bag was found to be intact, which was filled with Amvisc and [id number] 22.5 diopter IOL was injected into the bag and dialed into position using the Sinskey hook. IA was used to remove residual viscoelastic from the capsular bag and anterior chamber. The lips of the corneal wounds were then hydrated with BSS and were found to be watertight. Contact lens soaked in TobraDex solution for approximately 10 minutes was then draped in the cornea. The eye was patched and shielded. The patient was transferred to recovery room in stable condition, having tolerated the procedure well. STEPAN PALACIOS M.D. [id number]
== END 2018-07-25 13:30 | disposition home or self-care (01) ==
LOC: JASU-SURG 08:33
PROVIDERS: ATTEND Ophthalmology
PROC: 08RJ3JZ Replacement of Right Lens with Synthetic Substitute, Percutaneous Approach (ICD-10-PCS; principal; 2018-07-25 10:00)
DX: H26.9 Unspecified cataract (principal)
CPT/HCPCS: C9447

== ENCOUNTER 2020-10-04 10:04 | Observation (INO) | payer MEDICARE, OTHER ==
[2020-10-04 10:20] VITALS: BMI 26.5
[2020-10-04] MEDS ORDERED: ASPIRIN 81 MG CHEWABLE TABLETS PO ONE (11:23)
[2020-10-04] MEDS ORDERED: ACETAMINOPHEN 1000 MG/100 ML BAG IVPB ONE (11:23)
[2020-10-04] MEDS ORDERED: ACETAMINOPHEN INJECTION 100 ML IVPB ONE (11:32)
[2020-10-04] MEDS ORDERED: ASPIRIN 81 MG CHEWABLE TABLETS ONE (11:32)
[2020-10-04 12:13] LABS: BASO % 0.4 % (0-2.0); EOS % 2.6 % (0-4.5); HEMATOCRIT 37.7 % (32.4-45.2); HEMOGLOBIN 12.6 GM/dL (10.7-15.3); LYMPH % 24.2 % (8-40); MCH 29.5 pg (25.7-33.7); MCHC 33.5 g/dl (32.0-36.0); MEAN PLT VOLUME 8.8 fl (7.5-11.1); MONO % 5.9 % (3.8-10.2); NEUT % 66.9 % (42.8-82.8); PLATELET COUNT 310 K/MM3 (134-434); RBC 4.28 M/mm3 (3.60-5.2); RDW 13.3 % (11.6-15.6)
[2020-10-04 12:25] LABS: CHLORIDE 106 mmol/L (98-107); SODIUM 144 mmol/L (136-145)
[2020-10-04 12:27] LABS: CALCIUM 8.8 mg/dL (8.5-10.1)
[2020-10-04 12:28] LABS: ALBUMIN 3.7 g/dl (3.4-5.0); ANION GAP 7 MMOL/L (8-16); BLOOD UREA NITROGEN 32.9 mg/dL (7-18); CO2 30 mmol/L (21-32); GLUCOSE,RANDOM 102 mg/dL (74-106)
[2020-10-04 12:31] LABS: CREATININE 1.7 mg/dL (0.55-1.3); SGOT/AST 22 U/L (15-37); SGPT/ALT 22 U/L (13-61)
[2020-10-04 12:33] LABS: BILIRUBIN,TOTAL 0.4 mg/dL (0.2-1); TOT PROT 7.3 g/dl (6.4-8.2)
[2020-10-04 12:34] LABS: ALK PHOS 87 U/L (45-117)
[2020-10-05] MEDS ORDERED: SODIUM CHLORIDE 1,000 ML IV SCH (07:30)
[2020-10-05] MEDS ORDERED: HYDROCHLOROTHIAZIDE 12.5 MG CAPSULE (FP) PO SCH (10:00)
[2020-10-05] MEDS ORDERED: ASPIRIN COATED 81 MG TABLET.EC PO SCH (10:00)
[2020-10-05] MEDS ORDERED: HEPARIN NA (PORCINE) 5,000 UNITS/ML 1ML VIAL SQ SCH (10:00)
[2020-10-05] MEDS ORDERED: ASPIRIN 81 MG CHEWABLE TABLETS ONE (10:49)
[2020-10-05] MEDS ORDERED: HEPARIN NA (PORCINE) 5,000 UNITS/ML 1ML VIAL ONE (10:49)
[2020-10-05] MEDS ORDERED: ASPIRIN COATED 81 MG TABLET.EC ONE (10:54)
[2020-10-05] MEDS ORDERED: amLODIPine BESYLATE 10 MG TABLET (FP) PO ONE (17:26)
[2020-10-05] MEDS ORDERED: amLODIPine BESYLATE 5 MG TABLET (FP) ONE (17:28)
[2020-10-05 17:34] VITALS: TEMP 98
[2020-10-05 18:27] VITALS: BP 164/78; PULSE 88
[2020-10-06] MEDS ORDERED: amLODIPine BESYLATE 5 MG TABLET (FP) PO SCH (10:00)
== END 2020-10-05 18:20 | disposition home or self-care (01) ==
LOC: JER 10:04 → INTOOBSV 10-05 06:33 → JERBED 10-05 06:33
PROVIDERS: ADMIT Internal Medicine; ATTEND Internal Medicine
PROC: 3E0337Z Introduction of Electrolytic and Water Balance Substance into Peripheral Vein, Percutaneous Approach (ICD-10-PCS; principal; 2020-10-05)
PROC: 3E023GC Introduction of Other Therapeutic Substance into Muscle, Percutaneous Approach (ICD-10-PCS; 2020-10-05)
PROC: 3E033NZ Introduction of Analgesics, Hypnotics, Sedatives into Peripheral Vein, Percutaneous Approach (ICD-10-PCS; 2020-10-05)
DX: R00.2 Palpitations (principal); R07.9 Chest pain, unspecified; I10 Essential (primary) hypertension; E78.5 Hyperlipidemia, unspecified; Z29.9 Encounter for prophylactic measures, unspecified; Z87.891 Personal history of nicotine dependence
CPT/HCPCS: 36415; 71045-TC-FY; 80053; 82550; 82553; 83735; 84439; 84443; 84484; 85025; 93005; 93010; 96361; 96372; 96374; 99285-25; C9803; G0378; J0131; J1644; U0003